=== PATIENT | female | born 1995 | race Caucasian/White ===

== ENCOUNTER 2021-03-21 21:04 | Emergency (ER) | payer BC, OTHER ==
[2021-03-21 21:12] VITALS: BP 154/100; PULSE 103
[2021-03-21] MEDS ORDERED: methylPREDNISolone Sodium Succinate 125 MG/2 ML SDV IM ONE (21:36)
--- NOTE | 2021-03-21 21:42 | EDM.PDOC ---
ED HPI GENERAL MEDICAL PROBLEM - General Chief Complaint: General Stated Complaint: hives Time Seen by Provider: 03/21/21 21:25 Source of Information: Reports: Patient History Limitations: Reports: No Limitations - History of Present Illness INITIAL COMMENTS - FREE TEXT/NARRATIVE: Leatha is a 25 year old female who presents to ER with complaints of hives scattered throughout. Noted in her groin last evening, put some "psoriasis cream on them and it kept the itching at bay". This am, when awoke, had hives all over her arms, torso and legs. Very pruritic. Took a hot shower as thought it would be soothing only to have them get much worse. Took Benadryl an hour ago but admits it was in 2014. No dysphagia. No shortness of breath. Has not eaten any new foods, used any new products, no new exposures that she is aware of. Onset: Gradual Duration: Hour(s):, Getting Worse Location: Reports: Generalized Quality: Reports: Other (itching) Associated Symptoms: Denies: Confusion, Chest Pain, Cough, Fever/Chills, Loss of Appetite, Malaise, Nausea/Vomiting, Shortness of Breath Treatments CHIEF PORT DIRECTOR: Reports: Other (see below) Other Treatments CHIEF PORT DIRECTOR: BENADRYL - Related Data Allergies Allergy/AdvReac Type Severity Reaction Status Date / Time guaifenesin [From Robitussin] Allergy Hives Verified 03/21/21 21:12 Penicillins Allergy Hives Verified 03/21/21 21:12 Sulfa (Sulfonamide Allergy Hives Verified 03/21/21 21:12 Antibiotics) Home Meds: Home Meds Norethindrone [Josie] 1 tab PO DAILY 03/21/21 [History] predniSONE [Prednisone] 20 mg PO DAILY #8 tablet 03/21/21 [Rx] Past Medical History - Past Health History Medical/Surgical History: Denies Medical/Surgical History Social & Family History - Tobacco Use Tobacco Use Status *Q: Unknown Ever Used Tobacco ED ROS GENERAL - Review of Systems Review Of Systems: See Below Constitutional: Denies: Fever, Chills, Malaise, Weakness, Decreased Appetite HEENT: Denies: Ear Pain, Rhinitis, Sinus Problem, Throat Pain, Throat Swelling, Vertigo Respiratory: Denies: Shortness of Breath, Cough Cardiovascular: Denies: Chest Pain, Edema, Lightheadedness Endocrine: Denies: Fatigue GI/Abdominal: Denies: Abdominal Pain, Nausea, Vomiting : Reports: No Symptoms Musculoskeletal: Reports: No Symptoms Skin: Reports: Urticaria Neurological: Reports: No Symptoms ED EXAM, GENERAL - Physical Exam Exam: See Below Exam Limited By: No Limitations General Appearance: Alert, WD/WN, No Apparent Distress Ears: Normal External Exam, Normal TMs Nose: Normal Inspection, Normal Mucosa, No Blood Throat/Mouth: Normal Inspection, Normal Oropharynx Head: Normocephalic Neck: Normal Inspection, Supple, Non-Tender Respiratory/Chest: No Respiratory Distress, Lungs Clear, Normal Breath Sounds Cardiovascular: Regular Rate, Rhythm Neurological: Alert, Oriented Skin Exam: Rash (hives spread diffusely on legs, abdomen, chest and arms) Course - Vital Signs Last Recorded V/S: Last Vital Signs Temp 100.7 F H 03/21/21 21:08 Pulse 103 H 03/21/21 21:08 Resp 20 03/21/21 21:08 BP 154/100 H 03/21/21 21:08 Pulse Ox 100 03/21/21 21:08 - Orders/Labs/Meds Meds: Medications Discontinued Medications Generic Name Dose Route Start Last Admin Trade Name Avelq PRN Reason Stop Dose Admin Methylprednisolone Sodium Succinate 125 mg 03/21/21 21:36 03/21/21 21:41 Methylprednisolone Sodium Succinate 125 Mg/2 Ml Sdv IM 03/21/21 21:37 125 mg NOW ONE Administration Departure - Departure Time of Disposition: 21:47 Disposition: Home, Self-Care 01 Condition: Good Clinical Impression: Urticaria - Discharge Information *PRESCRIPTION DRUG MONITORING PROGRAM REVIEWED*: No *COPY OF PRESCRIPTION DRUG MONITORING REPORT IN PATIENT GREG: No Prescriptions: predniSONE [Prednisone] 20 mg PO DAILY #8 tablet Instructions: Hives Referrals: PCP,None [Primary Care Provider] - Forms: ED Department Discharge Additional Instructions: 1. Benadryl 50 mg every 6 hours for 24 hours 2. Prednisone 40 mg daily for 4 days 3. Follow up if recurring or persistent symptoms. Sepsis Event Note (ED) - Evaluation Sepsis Screening Result: No Definite Risk - Focused Exam Vital Signs: Vital Signs Temp Pulse Resp BP Pulse Ox 03/21/21 21:08 100.7 F H 103 H 20 154/100 H 100
== END 2021-03-21 22:00 | disposition home or self-care (01) ==
LOC: CC.ED 21:04
DX: L50.9 Urticaria, unspecified (principal); Z88.8 Allergy status to other drugs, medicaments and biological substances; Z88.0 Allergy status to penicillin; Z88.2 Allergy status to sulfonamides
CPT/HCPCS: 96372; 99282; J2930

== ENCOUNTER 2021-03-23 06:30 | Emergency (ER) | payer BC ==
[2021-03-23 06:40] VITALS: BP 154/83; PULSE 99
[2021-03-23] MEDS ORDERED: methylPREDNISolone Sodium Succinate 125 MG/2 ML SDV IM STA (07:12)
[2021-03-23] MEDS ORDERED: Take Home: hydrOXYzine HCl 25 MG Tab, 4 Tab Pack PO ONE (07:13)
--- NOTE | 2021-03-23 07:22 | EDM.PDOC ---
ED HPI GENERAL MEDICAL PROBLEM - General Chief Complaint: General Stated Complaint: worsening hives Time Seen by Provider: 03/23/21 06:58 Source of Information: Reports: Patient History Limitations: Reports: No Limitations - History of Present Illness INITIAL COMMENTS - FREE TEXT/NARRATIVE: Leatha is a 25 yr old female who presents to the ED with concerns of ongoing hives. States she started getting hives and feeling uncomfortable on Monday. Monday she came into the ED and was given a shot of SoluMedrol which did help for about 10 hrs. She states she went home and has been using benadryl as well. Admits last dose of Benadryl was this morning at 0500. Was given a prescription of prednisone and took 40mg yesterday and 40mg early this morning again. She is unsure what could have caused this. While discussing she did realize she ate tomatoes Monday and it started about a 1/2 hour afterwards and again yesterday she ate tomatoes. - Related Data Allergies Allergy/AdvReac Type Severity Reaction Status Date / Time guaifenesin [From Robitussin] Allergy Hives Verified 03/23/21 06:34 Penicillins Allergy Hives Verified 03/23/21 06:34 Sulfa (Sulfonamide Allergy Hives Verified 03/23/21 06:34 Antibiotics) Home Meds: Home Meds Norethindrone [Josie] 1 tab PO DAILY 03/21/21 [History] predniSONE [Prednisone] 20 mg PO DAILY #8 tablet 03/21/21 [Rx] Past Medical History - Past Health History Medical/Surgical History: Denies Medical/Surgical History Social & Family History - Tobacco Use Tobacco Use Status *Q: Unknown Ever Used Tobacco ED ROS GENERAL - Review of Systems Review Of Systems: See Below Constitutional: Reports: No Symptoms HEENT: Reports: No Symptoms. Denies: Throat Swelling Respiratory: Reports: No Symptoms. Denies: Shortness of Breath, Cough Cardiovascular: Reports: No Symptoms GI/Abdominal: Reports: No Symptoms Musculoskeletal: Reports: No Symptoms Skin: Reports: Urticaria Neurological: Reports: No Symptoms Psychiatric: Reports: No Symptoms ED EXAM, GENERAL - Physical Exam Exam: See Below Exam Limited By: No Limitations General Appearance: Alert, No Apparent Distress Eye Exam: Bilateral Eye: Normal Inspection Nose: Normal Inspection Throat/Mouth: Normal Inspection, Normal Lips, Normal Oropharynx, Normal Voice, No Airway Compromise Head: Atraumatic, Normocephalic Neck: Normal Inspection Respiratory/Chest: No Respiratory Distress, Lungs Clear, Normal Breath Sounds, No Accessory Muscle Use Cardiovascular: Regular Rate, Rhythm, No Murmur Skin Exam: Rash (persistent hives noted to bilateral lower and upper extremites and torso. Excoriations noted to abdomen from scratching. ) Course - Vital Signs Last Recorded V/S: Last Vital Signs Temp 97.6 F 03/23/21 06:30 Pulse 99 03/23/21 06:30 Resp 20 03/23/21 06:30 BP 154/83 H 03/23/21 06:30 Pulse Ox 100 03/23/21 06:30 - Orders/Labs/Meds Meds: Medications Discontinued Medications Generic Name Dose Route Start Last Admin Trade Name Freq PRN Reason Stop Dose Admin Hydroxyzine HCl 1 packet 03/23/21 07:13 Take Home: Hydroxyzine Hcl 25 Mg Tab, 4 Tab Pack PO 03/23/21 07:14 ONETIME ONE Methylprednisolone Sodium Succinate 125 mg 03/23/21 07:12 Methylprednisolone Sodium Succinate 125 Mg/2 Ml Sdv IM 03/23/21 07:13 NOW STA Departure - Departure Time of Disposition: 07:25 Disposition: Home, Self-Care 01 Clinical Impression: Urticaria - Discharge Information Instructions: Sumit, [id number] Additional Instructions: 1) Continue with prednisone as directed 2) Hydroxyzine 25mg every 8 hours as needed for itching, take home pack provided. May take when you get home today 3) Hydroxyzine may make you tired, so may want to substitute for loratadine 10mg daily 4) Refrain from eating any tomatoes. 5) Discussed calling the clinic this afternoon to see how you are doing or return sooner if any concerns. Sepsis Event Note (ED) - Evaluation Sepsis Screening Result: No Definite Risk - Focused Exam Vital Signs: Vital Signs Temp Pulse Resp BP Pulse Ox 03/23/21 06:30 97.6 F 99 20 154/83 H 100 - Problem List & Annotations (1) Urticaria SNOMED Code(s): 172038889 Code(s): L50.9 - URTICARIA, UNSPECIFIED Status: Acute - Assessment/Plan Plan: Patient given 125mg of Solu Medrol in the ED. Will send home with hydroxyzine take home pack. Discussed refraining from eating tomatoes. Will call this afternoon to see how Leatha is doing. Discussed at home remedies as well, which she will consider trying. Will take hydroxyzine 25mg tablet, take home, once she gets home around 9 this morning.
== END 2021-03-23 07:40 | disposition home or self-care (01) ==
LOC: CC.ED 06:30
DX: L50.9 Urticaria, unspecified (principal); Z88.0 Allergy status to penicillin; Z88.2 Allergy status to sulfonamides; Z88.1 Allergy status to other antibiotic agents
CPT/HCPCS: 96372; 99283; A9270; J2930